=== PATIENT | male | born 1985 | race Caucasian/White ===

== ENCOUNTER 2018-11-30 03:21 | Emergency (ER) | payer BC ==
[~2018-11-30] VITALS: Ht 170.2 cm; Wt 99.8 kg
--- OUTSIDE RECORDS SUMMARY | 2018-11-30 03:23 | XMS REPORT | Clinical Summary ---
Author Author [facility] Organization [facility] Address Unknown Phone Unavailable Care Team Providers Care Payable Manager Name Role Phone Asked, No Pcp PCP Unavailable Allergies No Known Allergies Medications End Date Status Medication Sig Dispensed Refills Start Date 10/23/2018 meloxicam (MOBIC) 15 mg Take 1 tablet 30 tablet 3 tabletIndications: Acute (15 mg total) 8 medial meniscus tear of by mouth right knee, initial daily for 120 encounter days. Take with food Active Problems Problem Noted Date Acute medial meniscus tear of right knee 02/21/2018 Encounters Care Team Description Date Type Specialty Gurdeep Mcdowell MD Acute medial meniscus tear of right knee, initial encounter (Primary Dx) 06/25/2018 Office Visit Orthopedic Surgery Gurdeep Mcdowell MD Sprain of other ligament of left knee, initial encounter 06/17/2018 Hospital Radiology Encounter Gurdeep Mcdowell MD Sprain of other ligament of left knee, initial encounter (Primary Dx); Chronic pain of left knee 06/10/2018 Office Visit Orthopedic Surgery Gurdeep Mcdowell MD Right leg pain (Primary Dx); Rupture of right gastrocnemius tendon, initial encounter 02/24/2018 Office Visit Orthopedic Surgery Gale Herndon MA 02/23/2018 Orders Only Ortho Sports Medicine Gale Herndon MA 02/23/2018 Documentation Ortho Sports Medicine Gale Herndon MA Pain of right lower extremity (Primary Dx) 02/23/2018 Orders Only Ortho Sports Medicine after 11/29/2017 Social History Date Tobacco Use Types Packs/Day Years Used Never Assessed Sex Assigned at Date Recorded Not on file Industry Job Start Date Occupation Not on file Not on file Not on file Travel End Travel History Travel Start No recent travel history available. Last Filed Vital Signs Not on file Plan of Treatment Health Maintenance Due Date Last Done Comments INFLUENZA VACCINE 05/27/2018 Procedures Comments Procedure Name Priority Date/Time Associated Diagnosis MRI KNEE WO CONTRAST LEFT Routine 06/17/2018 Sprain of other ligament 3:08 PM CDT of left knee, initial encounter XR KNEE 4+ VW LEFT Routine 06/10/2018 Chronic pain of left knee 1:37 PM CDT XR TIBIA FIBULA 2 VW Routine 02/24/2018 Right leg pain RIGHT 2:37 PM CDT after 11/29/2017 Results * MRI Knee Left Wo Contrast (06/17/2018 3:08 PM CDT) Narrative Performed At [facility] EXAMINATION:MRI KNEE WO CONTRAST LEFT CLINICAL HISTORY:S83.8X2A Sprain of other specified parts of left kneeinitial encounter, pain TECHNIQUE:Multiplanar multisequence MR imaging of theleft knee was performed without contrast. COMPARISON:None. IMPRESSION: MENISCI: There is a small peripheral undersurface tear of the posterior horn of the medial meniscus. There is no displaced fragment. Lateral meniscus is intact. CRUCIATE LIGAMENTS: ACL is intact. There is some abnormal signal present in the PCL consistent with partial tear and degeneration. COLLATERAL LIGAMENTS: Intact. ARTICULAR CARTILAGE: Mild patellofemoral chondromalacia. BONE MARROW: No focal abnormality. EXTENSOR MECHANISM: Intact. EFFUSION: There is a moderate joint effusion with mild synovitis. SOFT TISSUES: No focal abnormality. [id number] Procedure Note Interface, Radiology Results Incoming - 06/17/2018 3:55 PM CDT EXAMINATION: MRI KNEE WO CONTRAST LEFT CLINICAL HISTORY: S83.8X2A Sprain of other specified parts of left knee initial encounter, pain TECHNIQUE: Multiplanar multisequence MR imaging of the left knee was performed without contrast. COMPARISON: None. IMPRESSION: MENISCI: There is a small peripheral undersurface tear of the posterior horn of the medial meniscus. There is no displaced fragment. Lateral meniscus is intact. CRUCIATE LIGAMENTS: ACL is intact. There is some abnormal signal present in the PCL consistent with partial tear and degeneration. COLLATERAL LIGAMENTS: Intact. ARTICULAR CARTILAGE: Mild patellofemoral chondromalacia. BONE MARROW: No focal abnormality. EXTENSOR MECHANISM: Intact. EFFUSION: There is a moderate joint effusion with mild synovitis. SOFT TISSUES: No focal abnormality. [id number] Performing Organization Address [facility]/Zipcode Phone Number [facility] [phone] [place] [address] * XR Knee 4+ Vw Left (06/10/2018 1:37 PM CDT) Impressions Performed At Negative knee. [facility] Narrative Performed At [facility] FINDINGS: AP, lateral, tunnel, and sunrise views were obtained of the left knee. The bones are intact and normally located. There is no effusion. The bones, joints, and soft tissues appear normal. Performing Organization Address [facility]/Zipcode Phone Number [facility] [address] [place] [address] * XR Tibia Fibula 2 Vw Right (02/24/2018 2:37 PM CDT) Impressions Performed At Negative study. [facility] Narrative Performed At [facility] FINDINGS: 2 view demonstrate no fracture, periosteal reaction or other acute osseous abnormality. Performing Organization Address [facility] [address] [place] [address] after 11/29/2017 Insurance Payer Benefit Subscriber ID Type Phone Address Plan / Group BCBS BCBS OUT xxxxxxxxxxxxxxx PPO OF STATE Advance Directives Patient has advance care planning documents on file. For more information, krystal e contact: Aamir Webber [address] [place] [address]
[2018-11-30] MEDS ORDERED: ONDANSETRON HCL 4 MG ORAL DISINTEGRATING TAB PO STA (03:41)
[2018-11-30] MEDS ORDERED: MORPHINE SULFATE 2 MG/ML SYR 1ML IM STA (03:41)
--- NOTE | 2018-11-30 04:06 | Diagnostic Imaging Report ---
History: Headaches Comparison studies: None Technique: Axial images were obtained from the skull base to the vertex. Coronal and sagittal reconstructions obtained from the axial data. Dose modulation, iterative reconstruction, and/or weight based adjustment of the mA/kV was utilized to reduce the radiation dose to as low as reasonably achievable. Findings: Scalp/skull: No abnormalities. No fractures, blastic or lytic lesions. Extra-axial spaces: No masses. No fluid collections. Brain sulci: Appropriate for age. Ventricles: Normal in size and configuration. No hydrocephalus. Parenchyma: No abnormal densities. No masses, hemorrhage, acute or chronic cortical vascular insults. Sellar/suprasellar region: No abnormalities Craniocervical junction: Patent foramen magnum. No Chiari one malformation. IMPRESSION: No abnormalities. Signed by: Dr. Familia Fierro M.D. on 11/30/2018 4:02 AM
[2018-11-30] MEDS ORDERED: MORPHINE SULFATE INJ 4 MG/ML INJ 1ML IM STA (04:18)
[2018-11-30 04:25] VITALS: BP 138/74
== END 2018-11-30 04:41 | disposition home or self-care (01) ==
LOC: FSED 03:21
DX: G43.019 Migraine without aura, intractable, without status migrainosus (principal); K21.9 Gastro-esophageal reflux disease without esophagitis
CPT/HCPCS: 70450; 99283; Q0162